=== PATIENT | female | born 1960 ===

== ENCOUNTER 2017-10-28 21:30 | Emergency (ER) | payer OTHER ==
[2017-10-28 22:06] VITALS: BP 127/89
--- NOTE | 2017-10-28 22:48 | UC ---
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 Associated Signs & Symptoms: Positive: Negative Related History: Recent change in medication <Miranda Salazar - Last Filed: 11/11/17 19:04> <Eryn Burrell - Last Filed: 11/12/17 08:20> - History of Current Complaint Chief Complaint: UCAllergicReaction Time Seen by Provider: 10/28/17 22:39 Stated Complaint: RASH - Allergy/Home Medications Allergies/Adverse Reactions: Allergies Allergy/AdvReac Type Severity Reaction Status Date / Time azithromycin [From Zithromax] Allergy Rash Verified 10/28/17 23:09 doxycycline Allergy DYSPNEA Verified 10/28/17 22:07 Home Medications: Home Medications Minocycline (NF) 10/28/17 [History] Pseudoephedrine TAB* [Sudafed TAB*] 10/28/17 [History] diPHENhydraMINE PO* [Benadryl PO 25 MG TAB*] 2 tab PO PRN 10/28/17 [History] metroNIDAZOLE [Metrogel] 10/28/17 [History] Review of Systems Constitutional: Negative Skin: Rash - itchy and red began after she started Zithromax Eyes: Negative ENT: Negative Respiratory: Negative Cardiovascular: Negative Gastrointestinal: Negative Genitourinary: Negative Motor: Negative Neurovascular: Negative Musculoskeletal: Negative Neurological: Negative Psychological: Negative Is Patient Immunocompromised?: No All Other Systems Reviewed And Are Negative: Yes <Miranda Salazar - Last Filed: 11/11/17 19:04> PMH/Surg Hx/FS Hx/Imm Hx Previously Healthy: Yes - Surgical History Surgical History: None - Family History Known Family History: Positive: None - Social History Occupation: Employed Full-time Lives: With Family Alcohol Use: Occasionally Substance Use Type: None Smoking Status (MU): Never Smoked Tobacco <Miranda Salazar - Last Filed: 11/11/17 19:04> Physical Exam Triage Information Reviewed: Yes Appearance: Well-Appearing, No Pain Distress, Well-Nourished Vital Signs: Initial Vital Signs Temp 97.8 F 10/28/17 22:02 Pulse 79 10/28/17 22:02 Resp 16 10/28/17 22:02 BP 127/89 10/28/17 22:02 Pulse Ox 100 10/28/17 22:02 Vital Signs Reviewed: Yes Eye Exam: Normal Eyes: Positive: Conjunctiva Clear ENT Exam: Normal ENT: Positive: Normal ENT inspection, Hearing grossly normal, Pharynx normal. Negative: TMs normal, Trismus, Muffled voice, Hoarse voice Dental Exam: Normal Neck exam: Normal Neck: Positive: Supple, Nontender, No Lymphadenopathy Respiratory Exam: Normal Respiratory: Positive: Chest non-tender, Lungs clear, Normal breath sounds, No respiratory distress, No accessory muscle use Cardiovascular Exam: Normal Cardiovascular: Positive: RRR, No Murmur, Pulses Normal, Brisk Capillary Refill Musculoskeletal Exam: Normal Musculoskeletal: Positive: Strength Intact, ROM Intact, No Edema Neurological Exam: Normal Neurological: Positive: Alert, Muscle Tone Normal Psychological Exam: Normal Skin Exam: Normal <Miranda Salazar - Last Filed: 11/11/17 19:04> Vital Signs: Initial Vital Signs Temp 97.8 F 10/28/17 22:02 Pulse 79 10/28/17 22:02 Resp 16 10/28/17 22:02 BP 127/89 10/28/17 22:02 Pulse Ox 100 10/28/17 22:02 <Eryn Burrell - Last Filed: 11/12/17 08:20> Course/Dx - Course Course Of Treatment: benadryl, pecid, prednisone stop zithromax follow with pcp - Diagnoses Provider Diagnoses: allergic reaction to Zithromax <Miranda Salazar - Last Filed: 11/11/17 19:04> Discharge - Sign-Out/Discharge Documenting (check all that apply): Discharge/Admit/Transfer - Billing Disposition and Condition Condition: STABLE Disposition: Home <Miranda Salazar - Last Filed: 11/11/17 19:04> - Billing Disposition and Condition Condition: STABLE Disposition: Home <Eryn Burrell - Last Filed: 11/12/17 08:20> - Discharge Plan Condition: Stable Disposition: HOME Prescriptions: Famotidine TAB 40 MG(NF) [Pepcid TAB 40 MG(NF)] 40 mg PO DAILY #4 tab predniSONE TAB* [Deltasone 20 MG TAB*] 40 mg PO DAILY 4 Days #8 tab Patient Education Materials: Prednisone (By mouth), Diphenhydramine (By mouth) , Antibiotic Medication Allergy (ED) Referrals: No Primary Care Phys,NOPCP [Primary Care Provider] - Additional Instructions: Follow with your check clerk as needed Attestation Statement User Type: Provider - I was available for consult. This patient was seen by the JAMESON. The patient was not presented to, seen by, or examined by me. -Chiquis <Eryn Burrell - Last Filed: 11/12/17 08:20>
[2017-10-28] MEDS ORDERED: Famotidine TAB* 20 MG PO ONE (22:49)
[2017-10-28] MEDS ORDERED: predniSONE TAB* 20 MG PO ONE (22:49)
== END 2017-10-28 23:06 | disposition home or self-care (01) ==
LOC: UCEAST 21:30
DX: L27.0 Generalized skin eruption due to drugs and medicaments taken internally (principal); T36.3X5A Adverse effect of macrolides, initial encounter; Y92.9 Unspecified place or not applicable; Z88.1 Allergy status to other antibiotic agents
CPT/HCPCS: 99202; A9270-GY; G0463; J7512

== ENCOUNTER 2019-03-06 10:34 | Emergency (ER) | payer BC, OTHER ==
[2019-03-06 10:47] VITALS: BP 131/80
--- NOTE | 2019-03-06 11:19 | UC ---
Back Pain HPI - HPI Summary HPI Summary: CHIEF COMPLAINT and HPI: This is a 58-year-old healthy female who fell 4 days ago injuring her left low back, pelvis and sacrum. No abdominal, bladder or GI complaints. No limitation of walking or distal numbness or burning pain. Description of Pain: mild discomfort left lumbosacral area. Location: small bruise over left pelvis, posterior VITAL SIGNS & SaO2 REVIEWED. Within normal limits unless noted here. 131/80. NURSES NOTE REVIEWED. - History of Current Complaint Chief Complaint: UCBackPain Stated Complaint: BACK INJURY Time Seen by Provider: 03/06/19 11:17 Hx Obtained From: Patient Pain Intensity: 2 - Allergies/Home Medications Allergies/Adverse Reactions: Allergies Allergy/AdvReac Type Severity Reaction Status Date / Time azithromycin [From Zithromax] Allergy Rash Verified 03/06/19 10:47 doxycycline Allergy DYSPNEA Verified 03/06/19 10:47 Home Medications: Home Medications Ibuprofen TAB* [Motrin TAB* 400 MG] 400 mg PO Q6H PRN 03/06/19 [History Confirmed 03/06/19] Minocycline HCl [Minocycline Hydrochloride] 100 mg PO DAILY WITH MEAL 03/06/19 [ History Confirmed 03/06/19] Pseudoephedrine HCl 30 mg PO DAILY WITH MEAL 03/06/19 [History Confirmed ] PMH/Surg Hx/FS Hx/Imm Hx - Additional Past Medical History Additional PMH: PAST MEDICAL HISTORY- CHRONIC and RECURRENT HEALTH PROBLEM LIST REVIEWED. Rosacea; celiac disease. Information relevant to present complaint: VISIT HISTORY REVIEWED: non contributory. MEDICATIONS & ALLERGIES REVIEWED. HYPERTENSION STATUS: no hx or medication. FAMILY HISTORY: Positive for: hypertension, cardiovascular disease, stroke, diabetes, cancer. Patient denies family history of: hypertension, cardiovascular disease. SOCIAL HISTORY: former smoker, works as [employer]. Previously Healthy: Yes - Surgical History Surgical History: None - Family History Known Family History: Positive: None - Social History Alcohol Use: Occasionally Substance Use Type: None Smoking Status (MU): Former Smoker Review of Systems All Other Systems Reviewed And Are Negative: Yes Constitutional: Positive: Negative Respiratory: Positive: Negative Cardiovascular: Positive: Negative Gastrointestinal: Positive: Negative Is Patient Immunocompromised?: No Physical Exam - Summary Physical Exam Summary: Appearance: The patient is well-appearing, is in no pain or distress, and is well-nourished. Eyes: Conjunctiva are clear. Pupils are equal and reactive to light and accommodation. Extra ocular muscle movement is intact. ENT: The hearing is grossly normal, the pharynx is normal, and the TMs are normal. There is no muffled or hoarse voice. No stridor. Neck: The neck is supple and there is no lymphadenopathy. Respiratory: The chest is non-tender to palpation and without crepitus. The lungs are clear, there are normal breath sounds, and there is no respiratory distress. No wheezes, rales or rhonchi. Cardiovascular: Heart sounds reveal a regular rate and rhythm. There are no clicks, rubs or murmurs. There are no carotid bruits or thrills. Circulation is grossly intact. Abdomen: The abdomen is soft and nontender. There is no organomegaly. Bowel sounds are present and within normal limits. No point tenderness at McBurneys point. No CVA tenderness. Musculoskeletal: Strength is intact. The patient moves all extremities. Normal abulation; mild discomfort posterior left pelvis. Neurological: The patient is alert. Motor and sensory are examination grossly intact. Speech is normal. Psychological: The patient displays age appropriate behavior, and is conversant. GCS=15. Skin: Negative for rashes. Triage Information Reviewed: Yes Vital Signs: Initial Vital Signs Temp 98.4 F 03/06/19 10:43 Pulse 75 03/06/19 10:43 Resp 18 03/06/19 10:43 BP 131/80 03/06/19 10:43 Pulse Ox 100 03/06/19 10:43 Back Pain Course/Dx - Course Course Of Treatment: This is a 58-year-old healthy female who fell 4 days ago injuring her left low back, pelvis and sacrum. No abdominal, bladder or GI complaints. No limitation of walking or distal numbness or burning pain. Physical examination shows bruise left posterior pelvis. X ray is negative for fracture. Diagnosis is contusion of pelvis, sacrum with muscle strain from a fall. - Differential Dx/Diagnosis Differential Diagnosis/HQI/PQRI: Fracture, Herniated Disc, Strain, Sprain Provider Diagnosis: Contusion of lower back and pelvis, initial encounter Discharge ED - Sign-Out/Discharge Documenting (check all that apply): Patient Departure All imaging exams completed and their final reports reviewed: Yes - Discharge Plan Condition: Stable Disposition: HOME Patient Education Materials: Hip Contusion (ED), Sacral Fracture (ED) Referrals: No Primary Care Phys,NOPCP [Primary Care Provider] - Additional Instructions: WE DISCUSSED: Your diagnosis is bone contusion to the left pelvis, low back and sacrum. There is no evidence of fracture. I have given you information about symptoms that should be rechecked. YOUR PRESCRIPTION RECOMMENDATION IS:none. OTHER INSTRUCTIONS: Hypertension Discharge Instructions: Your blood pressure reading today was 131/80, indicating SLIGHT HYPERTENSION. Follow-up with your primary care provider within 4 weeks for blood pressure check and appropriate recommendations and treatment, as needed. FOR PAIN AND/OR SLEEP: For pain: Ibuprofen (Motrin and other brand names) 400-600mg PLUS acetaminophen (Tylenol and other brand names) 500mg - 1000mg every 8 hours. Call the Physician Referral Center at [facility] to assist you in finding a physician. The number is: [phone]. If you don't have a health care provider, call [facility] [place] for follow up care. The telephone number is: [phone]. - Billing Disposition and Condition Condition: STABLE Disposition: Home
== END 2019-03-06 12:40 | disposition home or self-care (01) ==
LOC: UCEAST 10:34
DX: S30.0XXA Contusion of lower back and pelvis, initial encounter (principal); L71.9 Rosacea, unspecified; Z88.0 Allergy status to penicillin; Z87.891 Personal history of nicotine dependence; W19.XXXA Unspecified fall, initial encounter; Y92.9 Unspecified place or not applicable
CPT/HCPCS: 72110; 99212; G0463